=== PATIENT | female | born 2000 | race Caucasian/White ===

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

== ENCOUNTER 2020-12-01 12:52 | Observation (INO) ==
[2020-12-01] MEDS ORDERED: Morphine 4 MG/ML VIAL (1 ml) IV ONE (13:01)
[2020-12-01] MEDS ORDERED: NS 0.9% 1000 ml BAG 1,000 ML IV ONE (13:01)
[2020-12-01] MEDS ORDERED: Ondansetron 4 mg VIAL 2 MG/ML 2 ml VIAL IV ONE (13:01)
[2020-12-01] MEDS ORDERED: Famotidine IV 10 MG/ML 2 ml VIAL (20 mg) IV SLOW PU ONE (13:03)
[2020-12-01 14:37] LABS: ABS Lymphocytes 2.1 10^3/ul (1.0-4.8); ABS Monocytes 0.7 10^3/ul (0-0.8); ABS Neutrophils 8.9 10^3/ul (1.5-7.7); Eosinophil % 0.1 %; Hematocrit 42 % (35-47); Hemoglobin 14.4 g/dL (12.0-16.0); Lymphocyte % 17.6 %; Mean Corpuscular HGB Conc 35 g/dL (31-36); Mean Corpuscular Hemoglobin 29 pg (27-31); Mean Corpuscular Volume 85 fL (80-97); Mean Platelet Volume 7.4 fL (7.4-10.4); Platelet Count 348 10^3/uL (150-450); Red Blood Count 4.93 10^6 /uL (3.70-4.87); Red Cell Distribution Width 13 % (10-15); White Blood Count 11.7 10^3/uL (3.5-10.8)
[2020-12-01 14:51] LABS: Albumin 4.5 g/dL (3.2-5.2); Albumin/Globulin Ratio 1.3 (1-3); BUN/Creatinine Ratio 11.3 (8-20); C Reactive Protein 5.67 mg/L (<8.01); Calcium 9.7 mg/dL (8.6-10.3); EGFR African American 110.7 (>60); EGFR Non-African American 91.4 (>60); Globulin 3.4 g/dL (2-4); Potassium 3.7 mmol/L (3.5-5.0); Total Bilirubin 0.5 mg/dL (0.2-1.0); Total Protein 7.9 g/dL (6.4-8.9)
[2020-12-01] MEDS ORDERED: Albuterol HFA INHALER 8 gm MDI INH PRN (17:04)
[2020-12-01] MEDS ORDERED: Lorazepam PYXIS KEY PRN (17:26)
[2020-12-01 18:04] LABS: TSH Ultra Thyroid Stim Horm 1.7 mcIU/mL (0.34-5.60)
[2020-12-01] MEDS: LORazepam 2 mg VIAL 1 ml IV PUSH PRN (19:30)
[2020-12-01] MEDS: Ondansetron 4 mg VIAL 2 MG/ML 2 ml VIAL IV PRN (19:31)
[2020-12-01] MEDS: Lactated Ringers 1000 ml BAG 1,000 ML IV SCH (21:00)
[2020-12-02] MEDS: LORazepam 2 mg VIAL 1 ml IV PUSH PRN (04:25)
[2020-12-02] MEDS: Ondansetron 4 mg VIAL 2 MG/ML 2 ml VIAL IV PRN ×3 (04:25→17:49)
[2020-12-02] MEDS ORDERED: Morphine 2 MG/ML SYRINGE IV ONE (05:34)
[2020-12-02] MEDS: Lactated Ringers 1000 ml BAG 1,000 ML IV SCH ×2 (05:40→17:35)
[2020-12-02 08:35] LABS: ABS Basophils 0.1 10^3/ul (0-0.2); ABS Lymphocytes 2.5 10^3/ul (1.0-4.8); ABS Monocytes 0.5 10^3/ul (0-0.8); ABS Neutrophils 5.3 10^3/ul (1.5-7.7); Eosinophil % 0.4 %; Hematocrit 43 % (35-47); Hemoglobin 14.5 g/dL (12.0-16.0); Lymphocyte % 29.2 %; Mean Corpuscular HGB Conc 34 g/dL (31-36); Mean Corpuscular Hemoglobin 29 pg (27-31); Mean Corpuscular Volume 86 fL (80-97); Mean Platelet Volume 7.4 fL (7.4-10.4); Nucleated Red Blood Cells % 0.1; Platelet Count 293 10^3/uL (150-450); Red Blood Count 4.98 10^6 /uL (3.70-4.87); Red Cell Distribution Width 13 % (10-15); White Blood Count 8.4 10^3/uL (3.5-10.8)
[2020-12-02 08:54] LABS: Anion Gap 9 mmol/L (2-11); BUN/Creatinine Ratio 12.3 (8-20); Blood Urea Nitrogen 10 mg/dL (6-24); CO2 Carbon Dioxide 24 mmol/L (22-32); Calcium 9.3 mg/dL (8.6-10.3); Chloride 105 mmol/L (101-111); EGFR African American 109.1 (>60); EGFR Non-African American 90.1 (>60); Glucose 79 mg/dL (70-100); Potassium 3.7 mmol/L (3.5-5.0); Sodium 138 mmol/L (135-145)
[2020-12-02 09:00] LABS: HCG Pregnancy < 0.60 mIU/mL
[2020-12-02] MEDS ORDERED: Pantoprazole VIAL 40 MG VIAL IV SCH (09:00)
[2020-12-02] MEDS ORDERED: Prochlorperazine 5 mg/ml 2 ml VIAL (10 mg) IV PRN (09:20)
[2020-12-02] MEDS ORDERED: Ondansetron 4 mg VIAL 2 MG/ML 2 ml VIAL IV PRN (09:28)
[2020-12-02] MEDS: Fluticasone NASAL SPRAY 50MCG 16 gm SPRAY BTL INTRANASAL SCH (11:13)
[2020-12-02] MEDS ORDERED: Midazolam 10 mg/10 ml VIAL 1 mg/ml 10 ml VIAL (10 mg) ONE (11:24)
[2020-12-02] MEDS ORDERED: fentaNYL 100 mcg/2 ml 50 MCG/ML VIAL ONE (11:24)
[2020-12-02] MEDS ORDERED: diPHENhydraMINE IV 50 MG/ML 1 ml VIAL (BENADRYL) ONE (11:24)
[2020-12-02] MEDS ORDERED: Lidocaine 2% PF 5 ML VIAL ONE (12:33)
[2020-12-03] MEDS: Ondansetron 4 mg VIAL 2 MG/ML 2 ml VIAL IV PRN ×2 (02:10→08:40)
[2020-12-03] MEDS: Lactated Ringers 1000 ml BAG 1,000 ML IV SCH ×2 (02:10→10:23)
[2020-12-03 08:52] LABS: BUN/Creatinine Ratio 9.9 (8-20); Calcium 9.1 mg/dL (8.6-10.3); EGFR African American 109.1 (>60); EGFR Non-African American 90.1 (>60); Potassium 3.6 mmol/L (3.5-5.0)
[2020-12-03] MEDS ORDERED: Enoxaparin 40 MG/0.4 ML SYR SUBCUT SCH (09:00)
[2020-12-03] MEDS: Fluticasone NASAL SPRAY 50MCG 16 gm SPRAY BTL INTRANASAL SCH (10:22)
[2020-12-03 11:59] VITALS: BP 141/92
== END 2020-12-03 13:05 | disposition home or self-care (01) ==
LOC: MED 12:52 → ED 12:52 → MED 18:19
PROVIDERS: ADMIT Internal Medicine; ATTEND Pediatrics